=== PATIENT | female | born 1980 | race Caucasian/White ===

== ENCOUNTER 2016-09-22 21:12 | Emergency (ER) | payer MEDICAID ==
[~2016-09-22] VITALS: Ht 165.1 cm; Wt 52.2 kg
[~2016-09-22 21:12] MED LIST: AMOXICILLIN500 MG PO; AMOXIL500 MG PO; ANTIVERT/2525 MG PO; CEFUROXIME AXE250 MG PO; CIPROFLOXACIN500 MG PO; CYCLOBENZAPRINE10 MG PO; FLONASE 0.05% 121 EA NAS; MACROBID100 M1 PO; MEDROL DOSEPAK4 MG PO; MOTRIN800 MG PO; NAPROSYN500 MG PO; NO DAILY MEDS; PERCOCET 325 MG1 TA2 PO; PYRIDIUM200 MG PO; TYLENOL W/CODEI1 TA2 PO; VICODIN 5-3001 EACH PO; ZOFRAN ODT4 MG SL; ZOFRAN4 MG PO
[2016-09-22 21:38] VITALS: BP 125/89
[2016-09-22] MEDS ORDERED: SUBOXONE 2 MG-1 EACH SL (22:49)
[2016-09-22] MEDS ORDERED: ZOFRAN ODT4 MG SL (22:50)
== END 2016-09-22 22:54 | disposition home or self-care (01) ==
LOC: ED 21:12
DX: G43.909 Migraine, unspecified, not intractable, without status migrainosus (principal); F17.200 Nicotine dependence, unspecified, uncomplicated; Z98.51 Tubal ligation status; Z98.890 Other specified postprocedural states; Z88.8 Allergy status to other drugs, medicaments and biological substances

== ENCOUNTER 2019-03-27 05:46 | Emergency (ER) | payer BC ==
[~2019-03-27] VITALS: Ht 170.1 cm; Wt 49.0 kg
[~2019-03-27 05:46] MED LIST changes: +SUBOXONE 2 MG-1 EACH SL
[2019-03-27 05:50] VITALS: BP 138/87
== END 2019-03-27 08:31 | disposition home or self-care (01) ==
LOC: ED 05:46
DX: G43.909 Migraine, unspecified, not intractable, without status migrainosus (principal); Z88.8 Allergy status to other drugs, medicaments and biological substances; Z79.899 Other long term (current) drug therapy

== ENCOUNTER 2019-04-26 19:50 | Emergency (ER) | payer BC ==
[~2019-04-26] VITALS: Ht 170.1 cm; Wt 49.9 kg
[2019-04-26 19:53] VITALS: BP 124/84
[2019-04-26] MEDS ORDERED: Motrin,Rufen800 MG PO (21:50)
== END 2019-04-26 21:51 | disposition home or self-care (01) ==
LOC: ED 19:50
DX: S22.32XA Fracture of one rib, left side, initial encounter for closed fracture (principal); G43.909 Migraine, unspecified, not intractable, without status migrainosus; Z88.8 Allergy status to other drugs, medicaments and biological substances; Z79.899 Other long term (current) drug therapy; W10.8XXA Fall (on) (from) other stairs and steps, initial encounter; Y93.89 Activity, other specified; Y92.89 Other specified places as the place of occurrence of the external cause; Y99.8 Other external cause status